=== PATIENT | female | born 1930 | race Caucasian/White ===

== ENCOUNTER 2020-01-31 15:18 | Emergency (ER) | payer MEDICARE, BC ==
--- OUTSIDE RECORDS SUMMARY | 2020-01-31 17:47 | XMS REPORT | Summary of Care ---
:1930 Author Organization [facility] Address [address] [place] [address] Care Team Providers Name Role Phone Sagar Mendieta MD Primary Care Provider Reason for Visit Reason Comments Memory Loss Encounter Details Date Type Department Care Team Description 12/22/2019 Office Visit [facility], Late onset Alzheimer's disease without behavioral disturbance (Primary Dx); Geriatricians at [address], PEDIATRICIAN/MEDICAL DOCTOR Frequent falls; [facility] [address] Right hip pain [address] [facility] [place] [address] [place] [address] [place], [place] [phone] Allergies Active Allergy Reactions Severity Noted Date Comments Morphine And Related Rash Low 02/24/2019 Adhesive Tape Itching 02/24/2019 "Paper tape" documented as of this encounter (statuses as of 12/24/2019) Medications Medication Sig Dispensed Refills Start End Date Status Date aspirin 81 MG EC Take 81 mg by 0 Active tablet mouth daily verapamil Take 120 mg by 0 Active (CALAN-SR) 120 MG mouth every CR tablet morning rosuvastatin Take 10 mg by 0 Active (CRESTOR) 10 MG mouth 3 (three) tablet times a week atenolol Take 50 mg by 0 Active (TENORMIN) 50 MG mouth daily tablet loperamide Take 2 mg by 0 Active (IMODIUM) 2 MG mouth as needed capsule for Diarrhea Amoxicillin 500 MG Take 500 mg by 0 Active Oral Capsule mouth as needed (AMOXIL) Prior to dental appointments Magnesium Oxide Take 400 mg by 0 Active 400 (241.3 Mg) MG mouth daily Oral Tablet (MAG-OX) Magnesium Take by mouth 0 Active Hydroxide 400 daily as needed MG/5ML Oral for Constipation Suspension (MILK OF MAGNESIA) Psyllium Take by mouth 0 Active (METAMUCIL FIBER PO) Bismuth Take 15 mLs by 0 Active Subsalicylate 262 mouth every 6 MG/15ML Oral (six) hours as Suspension needed for (BISMATROL) Indigestion guaiFENesin 100 Take 200 mg by 0 Active MG/5ML Oral Syrup mouth Three (ROBITUSSIN) times daily as needed for Cough Alum & Mag Take by mouth 0 Active Hydroxide-Simeth (ANTACID ADVANCED PO) Simethicone 80 MG Chew 80 mg by 0 Active Oral Tablet Mouth every 6 Chewable (MYLICON) (six) hours as needed for Flatulence Sertraline HCl 100 Take 1 tablet by 30 tablet 1 Active MG Oral Tablet mouth daily Take 0 (ZOLOFT) one tablet daily by mouth Acetaminophen ER Please 60 tablet 0 Active 650 MG Oral Tablet administer 0 Extended Release Tylenol 650 mg Q 12 hours x 14 days acetaminophen Take 650 mg by 0 12/22/19 Discontinued (ACETAMINOPHEN 8 mouth every 4 20 (Reorder) HOUR) 650 MG CR (four) hours as tablet needed for Pain Misc. Devices Use as directed. LFT's and serum valproic acid level during the week of Nov 23 2019. 1 each 0 12/22/19 Discontinued (No (DURABLE MEDICAL 9 20 longer needed) EQUIPMENT SEE SIG) Dx: Alzheimer's disease with agitation. XX MISC Sertraline HCl 100 Take 1 and 1/2 45 tablet 5 12/22/19 Discontinued MG Oral Tablet tabs 1 X a day 9 20 (Reorder) (ZOLOFT) QUEtiapine Take 0.5 tablets 15 tablet 1 12/24/19 Discontinued Fumarate 25 MG by mouth daily 0 20 Oral Tablet (SEROquel) Misc. Devices Use as directed. 1 each 0 12/22/19 Discontinued ( No (DURABLE MEDICAL Dose reduce 0 20 longer needed) EQUIPMENT SEE SIG) Depakote to 125 XX MISC mg BID x two weeks and then discontinue Divalproex Sodium take 1 tablet by 60 tablet 5 12/22/19 Discontinued (No 125 MG Oral Tablet mouth twice a 0 20 longer needed) Delayed Release day (DEPAKOTE) documented as of this encounter (statuses as of 12/24/2019) Active Problems Problem Noted Date Frequent falls 12/24/2019 Right hip pain 12/24/2019 Late onset Alzheimer's disease without behavioral disturbance 05/05/2019 Overview: 91/100; 17 March 2019 Last Assessment & Plan: Patient with agitation especially towards the evening directed at staff and other residents. We will start Depakote 125 mg bid and follow up with response from family regarding further titration. Patient remains appropriate for assisted living level of care and does not have residential needs at this time. Check LFTs and valproic acid level in about 6 weeks. Coronary artery disease involving [place] coronary artery of [place] heart 05/05 without angina pectoris Overview: With stents On daily aspirin Depression with anxiety 02/24/2019 Overview: 06/01 Geriatric Depression Scale February 2019 Last Assessment & Plan: Patient with ongoing anxiety despite sertraline 100 mg. Anxiety likely part of dementia syndrome. Decrease sertraline to 50 mg daily and next visit evaluate for further taper and d/c. Sensorineural hearing loss (SNHL) of both ears 02/24/2019 Overview: +hearing aides Essential hypertension 02/24/2019 Last Assessment & Plan: Stable on current therapy. Aortic valve disorder 02/24/2019 Pure hypercholesterolemia 02/24/2019 Polypharmacy 02/24/2019 Last Assessment & Plan: D/C Mg++, Ca++. Xanax and MVI. documented as of this encounter (statuses as of 12/24/2019) Resolved Problems Problem Noted Date Resolved Date Mild cognitive impairment with memory loss 02/24/2019 08/27/2019 Overview: 91/100; 17 March 2019 Last Assessment & Plan: Patient with clinical history and objective testing concerning for a mild dementia. However, depression and anxiety are very prominent and may have a negative impact on cognition. We will defer brain imaging for now. Check TFTs, B12 and folate along with CMP and CBC. There are no residential needs and her current level of care is appropriate. There are no behavior issues. Family is concerned and appropriate in supporting patient and are working hard to meet her needs. We suggest no driving at this time. documented as of this encounter (statuses as of 12/24/2019) Social History Tobacco Use Types Packs/Day Years Used Date Never Smoker Smokeless Tobacco: Never Used Alcohol Use Drinks/Week oz/Week Comments Never Alcohol Habits Answer Date Recorded How often do you have a drink containing alcohol? Never 02/24/2019 How many drinks containing alcohol do you have on a typical Not asked day when you are drinking? How often do you have six or more drinks on one occasion? Not asked Sex Assigned at Date Recorded Not on file Job Start Date Occupation Industry Not on file Not on file Not on file Travel History Travel Start Travel End No recent travel history available. documented as of this encounter Last Filed Vital Signs Vital Sign Reading Time Taken Comments Blood Pressure 94/60 12/22/2019 2:13 PM EST Pulse 80 12/22/2019 2:13 PM EST Temperature - - Respiratory Rate 16 12/22/2019 2:12 PM EST Oxygen Saturation - - Inhaled Oxygen Concentration - - Weight 69.9 kg (154 lb) 12/22/2019 2:12 PM EST Height - - Body Mass Index 27.29 05/05/2019 2:32 PM EDT documented in this encounter Patient Instructions Patient InstructionsRosa Barillas NP - 12/22/2019 2:00 PM ESTPlease call me in one month to let me know how she is doing one 100 mg of sertraline and we will dose reduce to 75 mg at that time I will call you once I hear from primary care office documented in this encounter Progress Notes Rosa Barillas NP - 12/22/2019 2:00 PM EST Nataliya Tavares is a/an 89 y.o. female who presents for ongoing geriatric medicine monitoring and management of their progressive cognitive impairment. Additional Providers: Sagar Mendieta MD (PCP) History of Present Illness: Patient presents for one month follow up to her office visit on 11/24/2019. This is my second encounter with patient. Interviews were conducted together. History primarily contributed by patient's daughter, [place]. Patient continues to reside in [facility]. She transitioned there in the fall from living with [place]. Patient was seen urgently in November due to patient developing inconsolable anxiety and behaviors secondary to her Alzheimer's disease. These behaviors increased shortly after patient transitioned to [facility]. She was at times confrontation and "aggressive" with staff and other residents. During the fall patient sertraline was increased and depakote was initiated, both of which had little effect of mood and behaviors. At patient's last visit, we dose reduced and discontinued her Depakote. Patient was started on quetiapine 12.5 mg daily which facility notes has improved patient's behaviors and mood. Daughter agrees with this report. Daughters would like to slowly discontinue sertraline as patient has been on it many years without good effect. Patient has had several falls since her last visit- three occurring last week. Daughter reports thatpatient was sent to the ED 2/3 times for evaluation. Patient has bruising and pain when sitting to her right hip/buttock. There is no changes in ambulation. Patient saw her PCP last week- had labs. Perdaughter, script for magnesium and levothyroxine called in. Called PCP to verify this. Patient's BP is soft in office today with orthostatic changes. Relevant Testing: MMSE/3MS/GDS 02/24/2019: 28/30, 91/100 and 06/01. I have reviewed and updated all applicable and available medical, surgical, family, social, and allergy history. Past Medical History: Diagnosis Date Aortic valve disorder 02/24/2019 Coronary artery disease involving [place] coronary artery of [place] heart without angina pectoris 05/05/2019 With stents On daily aspirin Depression with anxiety 02/24/201906/01 Geriatric Depression Scale February 2019 Essential hypertension 02/24/2019 Late onset Alzheimer's disease without behavioral disturbance 05/05/2019 Polypharmacy 02/24/2019 Pure hypercholesterolemia 02/24/2019 Sensorineural hearing loss (SNHL) of both ears 02/24/2019 +hearing aides Social History Socioeconomic History Marital status: Spouse name: Not on file Number of children: Not on file Years of education: Not on file Highest education level: Not on file Occupational History Not on file Social Needs Financial resource strain: Not on file Food insecurity: Worry: Not on file Inability: Not on file Transportation needs: Medical: Not on file Non-medical: Not on file Tobacco Use Smoking status: Never Smoker Smokeless tobacco: Never Used Substance and Sexual Activity Alcohol use: Never Frequency: Never Drug use: Not on file Sexual activity: Not on file Lifestyle Physical activity: Days per week: Not on file Minutes per session: Not on file Stress: Not on file Relationships Social connections: Talks on phone: Not on file Gets together: Not on file Attends samaritan service: Not on file Active member of club or organization: Not on file Attends meetings of clubs or organizations: Not on file Relationship status: Not on file Intimate partner violence: Fear of current or ex partner: Not on file Emotionally abused: Not on file Physically abused: Not on file Forced sexual activity: Not on file Other Topics Concern Not on file Social History Narrative Not on file Current Outpatient Medications Medication Sig Dispense Refill acetaminophen (ACETAMINOPHEN 8 HOUR) 650 MG CR tablet Take 650 mg by mouth every 4 (four) hours as needed for Pain Alum & Mag Hydroxide-Simeth (ANTACID ADVANCED PO) Take by mouth Amoxicillin 500 MG Oral Capsule (AMOXIL) Take 500 mg by mouth as needed Prior to dental appointments aspirin 81 MG EC tablet Take 81 mg by mouth daily atenolol (TENORMIN) 50 MG tablet Take 50 mg by mouth daily Bismuth Subsalicylate 262 MG/15ML Oral Suspension (BISMATROL) Take 15 mLs by mouth every 6 (six) hours as needed for Indigestion guaiFENesin 100 MG/5ML Oral Syrup (ROBITUSSIN) Take 200 mg by mouth Three times daily as needed for Cough loperamide (IMODIUM) 2 MG capsule Take 2 mg by mouth as needed for Diarrhea Magnesium Hydroxide 400 MG/5ML Oral Suspension (MILK OF MAGNESIA) Take by mouth daily as needed for Constipation Magnesium Oxide 400 (241.3 Mg) MG Oral Tablet (MAG-OX) Take 400 mg by mouth daily Psyllium (METAMUCIL FIBER PO) Take by mouth QUEtiapine Fumarate 25 MG Oral Tablet (SEROquel) Take 0.5 tablets by mouth daily 15 tablet 1 rosuvastatin (CRESTOR) 10 MG tablet Take 10 mg by mouth 3 (three) times a week Sertraline HCl 100 MG Oral Tablet (ZOLOFT) Take 1 and 1/2 tabs 1 X a day 45 tablet 5 Simethicone 80 MG Oral Tablet Chewable (MYLICON) Chew 80 mg by Mouth every 6 (six) hours as needed for Flatulence verapamil (CALAN-SR) 120 MG CR tablet Take 120 mg by mouth every morning No current facility-administered medications for this visit. Allergies Allergen Reactions Tape [Adhesive Tape] Itching "Paper tape" Morphine And Related Rash Review of Systems Unable to perform ROS: Dementia Refer to HPI for portions of ROS contributed by daughters. Vitals: 12/22/19 1412 12/22/19 1413 BP: 110/64 94/60 BP Location: Left arm Left arm Patient Position: Sitting Sitting Cuff size: Regular Regular Pulse: 76 80 Resp: 16 Weight: 69.9 kg (154 lb) Physical Exam: VS reviewed Constitutional: She appears well-developed and well-nourished. No distress. Alert, pleasant, hard of hearing HENT: Head: Normocephalic and atraumatic. Mouth/Throat: Oropharynx is clear and moist. Cardiovascular: Normal rate and regular rhythm. + murmur Pulmonary/Chest: Effort normal and breath sounds normal. She has no wheezes. She has no rales. Abdominal: Soft. Musculoskeletal: Normal range of motion. She exhibits no edema or deformity. Neurological: She is alert. Motor strength 5/5 and equal bilat No tremor or cogwheeling Gait and balance are fair Abnormal remote memory Skin: Skin is warm and dry. Bruising to right hip, posterior thigh and buttock. No results found for any visits on 12/22/19. Assessment and Plan: 1) Late Onest Alzheimer's disease with behavioral disturbance -Patient with progressive cognitive decline and behaviors secondary to the disease process. Consistently agitated with behaviors directed and staff and other residents. Daughters want to maintain patient in current environment and optimize quality of life. -Continue quetiapine 12.5 mg daily for behavioral disturbance -Dose reduce sertraline to 100 mg x one month. DaughterFrance to call at that time to discuss how patient is tolerating. May further dose reduce at that time -At appropriate level of care at [facility] 2) Frequent falls -Call to PCP during office visit to recommending dose reduction of antihypertensives due to orthostasis to minimize risk for falls 3) Right hip pain -No changes in ROM or gait -Tylenol 650 mg BID x 14 days -Ice to area nightly and PRN Follow up in eight weeks Rosa Barillas, TORSTEN documented in this encounter Plan of Treatment Date Type Specialty Care Team Description 02/16/2020 Office Visit Geriatric Medicine Rosa Barillas NP [address] [facility] [place] [address] Health Maintenance Due Date Last Done Comments MMR Vaccines (1 of 1 - Standard 02/04/1931 series) Varicella Vaccines (1 of 2 - 02/04/1931 2-dose childhood series) DTaP,Tdap,and Td Vaccines (1 - 02/04/1939 Tdap) Zoster Vaccines (1 of 2) 02/04/1982 Osteoporosis Screening 2 yr 02/04/1997 Pneumococcal Vaccine: 65+ Years (1 02/04/1997 of 2 - PCV13) Influenza Vaccine 08/18/2019 HIB Vaccines Aged Out No longer eligible based on patient's age to complete this topic Hepatitis A Vaccines Aged Out No longer eligible based on patient's age to complete this topic Hepatitis B Vaccines Aged Out No longer eligible based on patient's age to complete this topic IPV Vaccines Aged Out No longer eligible based on patient's age to complete this topic Pneumococcal Vaccine: Pediatrics Aged Out No longer eligible based on (0 to 5 Years) and At-Risk patient's age to complete this Patients (6 to 64 Years) topic documented as of this encounter Results Not on filedocumented in this encounter Visit Diagnoses Diagnosis Late onset Alzheimer's disease without behavioral disturbance - Primary Frequent falls Personal history of fall Right hip pain Pain in joint, pelvic region and thigh documented in this encounter
--- OUTSIDE RECORDS SUMMARY | 2020-01-31 17:47 | XMS REPORT | Continuity of Care Document ---
:1930 External Reference #:[id number] Author Name Janeth Richards Care Team Providers Name Role Phone Omar ENT - Otolaryngology Care Team Information Associate Director Finance [phone] Errol Alfred MD - Gastroenterology Care Team Information Associate Director Finance [phone] Harpreet Bowman MD - Plastic and Care Team Information Associate Director Finance [phone] Reconstructive Surgery Maria De Jesus Naranjo MD - Cardiovascular Care Team Information Associate Director Finance Disease Renny Pineda MD - Physical Care Team Information Associate Director Finance Medicine & Rehabilitation Problems Active Problems Provider Date Benign essential hypertension Socrates Wolf M.D. Onset: 08/10/2003 Pure hypercholesterolemia Socrates Wolf M.D. Onset: 08/10/2003 Aortic valve disorder Onset: 08/10/2003 Rheumatic disease of tricuspid valve Socrates Wolf M.D. Onset: 2002 Anxiety state Socrates Wolf M.D. Onset: 08/10/2003 Conductive hearing loss Onset: 08/10/2003 Disorder of cardiovascular system Socrates Wolf M.D. Onset: 03/21/2004 Cardiac pacemaker in situ Socrates Wolf M.D. Onset: 03/21/2004 Abdominal pain Socrates Wolf M.D. Onset: 06/07/2004 Dysthymia Socrates Wolf M.D. Onset: 06/22/2004 Chronic rhinitis Socrates Wolf M.D. Onset: 09/04/2004 Osteochondropathy Socrates Wolf M.D. Onset: 08/24/2008 Essential hypertension Socrates Wolf M.D. Onset: 03/22/2016 Hypothyroidism Cuca Fam PA Onset: 07/22/2019 Alzheimer's disease Cuca Fam PA Onset: 07/22/2019 Social History Type Date Description Comments Sex Unknown Tobacco Use Start: Unknown Never Smoked Cigarettes ETOH Use Denies alcohol use Tobacco Use Start: Unknown Patient has never smoked Recreational Drug Use Denies Drug Use Smoking Status Reviewed: 07/27/19 Patient has never smoked Exercise Type/Frequency Exercises rarely Sun Exposure Does not use sunscreen not regularly Seat Belt/Car Seat Seat Belt Use - Yes Smoke Alarms Yes smoke alarm Allergies, Adverse Reactions, Alerts Active Allergies Reaction Severity Comments Date Bactrim rash urticarial 09/12/2013 Tape And Adhesives Rash and itching 04/02/2014 Sulfa rash and nausea 04/02/2014 Morphine 09/19/2018 Inactive Allergies NKDA 07/11/2012 Medications Active Medications SIG Qnty Indications Ordering Date Provider Magox 400 2 tablets every 180tabs Poli Moreno, 12/17/2019 400(241.3mg) mg night at bedtime D.O. Tablets Levothyroxine Sodium 1 by mouth every 30tabs Poli Moreno, 12/17/2019 day D.O. 25mcg Tablets Aspirin Ec Low Dose 1 by mouth every Unknown 12/15/[address] Sertraline HCL 1 1/2 tablets by F41.1 Unknown 12/10/2019 100mg mouth every day Tablets F34.1 Quetiapine Fumarate 1/2 tablet daily Unknown 11/24/2019 25mg Tablets Metamucil 1 tbsp/day as needed Sagar Mendieta, 08/20/2019 30.9% Powder for constipation M.D. Immodium as needed Unknown 07/21/2019 Rosuvastatin Calcium takes on Mon, Wed, Fri E78.00 Unknown 03/29/2019 10mg Tablets Verapamil HCL ER take 1 tablet by mouth 90tabs I10 Sagar Mendieta, 2017 120mg every morning for high M.D. Tablets ER blood pressure Atenolol take 1 tablet by mouth 90tabs I10 Sagar Mendieta, 09/10/2018 50mg Tablets every morning for high M.D. blood pressure Amoxicillin take 4, one hour 28caps 424.1 Sagar Mendieta, 06/11/2014 500mg before dental work M.DMorro Capsules 397.0 Acetaminophen 1-2 q4h prn pain otc Unknown 04/01/2014 325mg Tablets don't exceed 8 / day Simethicone 1 po 4x/day as 120units 564.1 Socrates Ellison 05/26/2010 80mg Chewtabs needed before meals Yumiko Wolf and before bed, for abdominal gas 271.3 History Medications Sertraline HCL take 1 tablet daily F41.1 Unknown 08/27/2019 - 12/16/2019 50mg Tablets for mood F34.1 Medications Administered in Office Medication SIG Qnty Indications Ordering Provider Date injection, kenalog, 10 mg Socrates Wolf M.D. 06/21/2014 Injection Immunizations CPT Code Status Date Vaccine Lot # [id number] Given 07/22/2019 Influenza Vaccine, Inactivated, Subunit, [id number] Adjuvanted, For Intrmusc 80707 Given 07/29/2018 Influenza Vaccine Split Virus Preservative Free Im [id number] Use (hi-dose) 98393 Given 06/04/2018 Shingrix Zoster (Shingles) Vaccine (HZV) Recomb,Subnit,Adjuvanted 59741 Given 03/11/2018 Shingrix Zoster (Shingles) Vaccine (HZV) Recomb,Subnit,Adjuvanted 66885 Given 08/22/2017 Influenza Vaccine Split Virus Preservative Free Im Use (hi-dose) 13181 Given 07/21/2016 Influenza Vaccine Split Virus Preservative Free Im [id number] Use (hi-dose) 46109 Given 10/07/2015 Prevnar 13 [id number] 80981 Given 08/23/2015 Influenza Virus Vaccine, Quadrivalent, Split, [id number] Preservative Free 70022 Given 10/29/2014 Adacel or Boostrix, TDaP [id number] 89118 Given 08/06/2014 Pneumococcal Immunization [id number] 29453 Given 07/16/2014 Influenza Virus Vaccine, Quadrivalent, Split, [id number] Preservative Free 57557 Given 08/03/2013 Flu, Split Virus 3Yrs [id number] 21901 Given 07/11/2012 Flu, Split Virus 3Yrs [id number] 51023 Given 08/07/2011 Zostavax [id number] 47936 Given 08/02/2011 Flu, Split Virus 3Yrs [id number] 57066 Given 08/18/2010 Flu, Split Virus 3Yrs 37231 Given 08/24/2008 Flu, Split Virus 3Yrs 07265 Given 08/20/2007 Flu, Split Virus 3Yrs [id number] 46291 Given 09/10/2006 Flu, Split Virus 3Yrs 08217 Given 08/13/2005 Td Immunization 61933 Given 08/13/2005 Flu, Split Virus 3Yrs 34688 Given 08/23/2004 Flu, Split Virus 3Yrs 47869 Given 08/28/2003 Flu, Split Virus 3Yrs 00189 Given 08/10/2003 Pneumococcal Immunization Vital Signs Date Vital Result Comment 12/16/2019 2:44pm BP Systolic 120 mmHg BP Diastolic 80 mmHg Height 63.5 inches 5'3.50" Weight 144.00 lb BMI (Body Mass Index) 25.1 kg/m2 07/22/2019 9:52am BP Systolic 112 mmHg BP Diastolic 80 mmHg Heart Rate 80 /min Respiratory Rate 12 /min Height 63.5 inches 5'3.50" Weight 162.00 lb BMI (Body Mass Index) 28.2 kg/m2 Results Test Acquired Date Facility Test Result H/L Range Note Laboratory test 12/16/2019 [facility] Vitamin B12 284 pg/mL Normal 180-914 1 finding [phone] CBC Auto Diff 12/16/2019 [facility] White Blood 6.2 10^3/uL Normal 3.5-10.8 [phone] Count Red Blood Count 5.28 10^6/uL High 3.70-4.87 Hemoglobin 15.7 g/dL Normal 12.0-16.0 Hematocrit 47 % Normal 35-47 Mean Corpuscular Volume 89 fL Normal 80-97 Mean Corpuscular Hemoglobin 30 pg Normal 27-31 Mean Corpuscular HGB Conc 33 g/dL Normal 31-36 Red Cell Distribution Width 16 % High 10-15 Platelet Count 186 10^3/uL Normal 150-450 Mean Platelet Volume 8.8 fL Normal 7.4-10.4 Abs Neutrophils 3.9 10^3/uL Normal 1.5-7.7 Abs Lymphocytes 1.5 10^3/uL Normal 1.0-4.8 Abs Monocytes 0.6 10^3/uL Normal 0-0.8 Abs Eosinophils 0.1 10^3/uL Normal 0-0.6 Abs Basophils 0.0 10^3/uL Normal 0-0.2 Abs Nucleated RBC 0.0 10^3/uL Granulocyte % 63.7 % Lymphocyte % 23.5 % Monocyte % 10.4 % Eosinophil % 2.0 % Basophil % 0.4 % Nucleated Red Blood Cells % 0.0 TSH+Free T4 12/16/2019 [facility] TSH (Thyroid 10.91 mcIU/mL High 0.34-5.60 [phone] Stim Horm) Free T4 (Free Thyroxine) 0.94 ng/dL Normal 0.61-1.12 Comp Metabolic Panel 12/16/2019 [facility] Sodium 137 mmol/L Normal 135-145 [phone] Potassium 4.1 mmol/L Normal 3.5-5.0 Chloride 100 mmol/L Low 101-111 Co2 Carbon Dioxide 29 mmol/L Normal 22-32 Anion Gap 8 mmol/L Normal 2-11 Glucose 113 mg/dL High 70-100 Blood Urea Nitrogen 20 mg/dL Normal 6-24 Creatinine 0.83 mg/dL Normal 0.51-0.95 BUN/Creatinine Ratio 24.1 High 8-20 Calcium 9.1 mg/dL Normal 8.6-10.3 Total Protein 6.1 g/dL Low 6.4-8.9 Albumin 4.0 g/dL Normal 3.2-5.2 Globulin 2.1 g/dL Normal 2-4 Albumin/Globulin Ratio 1.9 Normal 1-3 Total Bilirubin 1.00 mg/dL Normal 0.2-1.0 Alkaline Phosphatase 90 U/L Normal 34-104 Alt 9 U/L Normal 7-52 Ast 14 U/L Normal 13-39 Egfr Non- 65.0 >60 Egfr 78.7 >60 2 Laboratory test 12/16/2019 [facility] Magnesium 1.8 mg/dL Low 1.9- 2.7 finding [phone] Lipid Profile 07/21/2019 [facility] Triglycerides 159 mg/dL 3 (Trig/Chol/HDL) [phone] Cholesterol 243 mg/dL 4 HDL Cholesterol 46.5 mg/dL 5 LDL Cholesterol 165 mg/dL 6 Laboratory test 07/21/2019 [facility] Alt (SGPT) 9 U/L Normal 7-52 7 finding [phone] Basic Metabolic 07/21/2019 [facility] Sodium 136 mmol/L Normal 135- 145 Panel [phone] Potassium 4.1 mmol/L Normal 3.5-5.0 Chloride 100 mmol/L Low 101-111 Co2 Carbon Dioxide 28 mmol/L Normal 22-32 Anion Gap 8 mmol/L Normal 2-11 Glucose 136 mg/dL High 70-100 Blood Urea Nitrogen 16 mg/dL Normal 6-24 Creatinine 0.84 mg/dL Normal 0.51-0.95 BUN/Creatinine Ratio 19.0 Normal 8-20 Calcium 9.7 mg/dL Normal 8.6-10.3 Egfr Non- 64.1 >60 Egfr 77.6 >60 8 Quantiferon-TB Gold 07/21/2019 [facility] QuantiferonTb Negative Negative 9 Plus [phone] Gold Plus Result TB1 Ag minus Nil Result -0.01 IU/mL TB2 Ag minus Nil Result -0.01 IU/mL Mitogen minus Nil Result 0.71 IU/mL Nil Result 0.03 IU/mL Laboratory test 07/21/2019 [facility] TSH (Thyroid 8.92 High 0.34- 5.60 10 finding [phone] Stim Horm) mcIU/mL CBC Auto Diff 07/21/2019 [facility] White Blood 6.4 10^3/uL Normal 3.5-10.8 [phone] Count Red Blood Count 5.50 10^6/uL High 3.70-4.87 Hemoglobin 16.6 g/dL High 12.0-16.0 Hematocrit 49 % High 35-47 Mean Corpuscular Volume 90 fL Normal 80-97 Mean Corpuscular Hemoglobin 30 pg Normal 27-31 Mean Corpuscular HGB Conc 34 g/dL Normal 31-36 Red Cell Distribution Width 14 % Normal 10-15 Platelet Count 228 10^3/uL Normal 150-450 Mean Platelet Volume 8.7 fL Normal 7.4-10.4 Abs Neutrophils 3.8 10^3/uL Normal 1.5-7.7 Abs Lymphocytes 1.7 10^3/uL Normal 1.0-4.8 Abs Monocytes 0.7 10^3/uL Normal 0-0.8 Abs Eosinophils 0.1 10^3/uL Normal 0-0.6 Abs Basophils 0.0 10^3/uL Normal 0-0.2 Abs Nucleated RBC 0.0 10^3/uL Granulocyte % 60.1 % Lymphocyte % 26.9 % Monocyte % 11.7 % Eosinophil % 0.9 % Basophil % 0.4 % Nucleated Red Blood Cells % 0.0 1 Normal Range 180 to 914 Indeterminate Range 145 to 180 Deficient Range <145 2 Because ethnic data is not always readily available, this report includes an eGFR for both -Americans and non- Americans. The National Kidney Disease Education Program (NKDEP) does not endorse the use of the MDRD equation for patients that are not between the ages of 18 and 70, are , have extremes of body size, muscle mass, or nutritional status, or are non- or non-. According to the National Kidney Foundation, irrespective of diagnosis, the stage of the disease is based on the level of kidney function: Stage Description GFR(mL/min/1.73 m(2)) 1 Kidney damage with normal or decreased GFR 90 2 Kidney damage with mild decrease in GFR 60-89 3 Moderate decrease in GFR 30-59 4 Severe decrease in GFR 15-29 5 Kidney failure <15 (or dialysis) 3 Desirable: <150 Borderline High: 150-199 High: 200-499 Very High: >500 4 Desirable: <200 Borderline High: 200-239 High: >239 5 Low: <40 Desirable: 40-60 High: >60 6 Desirable: <100 Near Optimal: 100-129 Borderline High: 130-159 High: 160-189 Very High: >189 7 FASTING 12 HOUR Copy Result to: MARIA DE JESUS NARANJO ([id number]) [id number] Because ethnic data is not always readily available, this report includes an eGFR for both -Americans and non- Americans. The National Kidney Disease Education Program (NKDEP) does not endorse the use of the MDRD equation for patients that are not between the ages of 18 and 70, are , have extremes of body size, muscle mass, or nutritional status, or are non- or non-. According to the National Kidney Foundation, irrespective of diagnosis, the stage of the disease is based on the level of kidney function: Stage Description GFR(mL/min/1.73 m(2)) 1 Kidney damage with normal or decreased GFR 90 2 Kidney damage with mild decrease in GFR 60-89 3 Moderate decrease in GFR 30-59 4 Severe decrease in GFR 15-29 5 Kidney failure <15 (or dialysis) 9 M. tuberculosis infection NOT likely 10 FASTING 12 HOUR Copy Result to: MARIA DE JESUS NARANJO ([id number]) [id number] Procedures Date Code Description Status 12/16/2019 40472 Electrocardiogram Complete Completed 07/10/2018 14894006 Mammogram Completed 07/09/2014 [id number] Colonoscopy Completed Medical Devices Description No Information Available Encounters Type Date Location Provider Dx Diagnosis Office Visit 12/16/2019 Main Office Poli Moreno, G30.9 Alzheimer's disease, 2:30p D.O. unspecified I10 Essential (primary) hypertension E03.9 Hypothyroidism, unspecified F34.1 Dysthymic disorder E78.00 Pure hypercholesterolemia, unspecified F41.1 Generalized anxiety disorder Z68.25 Body mass index (BMI) 25.0-25.9, adult I35.0 Nonrheumatic aortic (valve) stenosis Assessments Date Code Description Provider 12/16/2019 G30.9 Alzheimer's disease, unspecified Poli Moreno D.O. 12/16/2019 I10 Essential (primary) hypertension Poli Moreno D.O. 12/16/2019 E03.9 Hypothyroidism, unspecified Poli Moreno D.O. 12/16/2019 F34.1 Dysthymic disorder Poli Moreno D.O. 12/16/2019 E78.00 Pure hypercholesterolemia, unspecified Poli Moreno D.O. 12/16/2019 F41.1 Generalized anxiety disorder Poli Moreno D.O. 12/16/2019 Z68.25 Body mass index (BMI) 25.0-25.9, adult Poli Moreno D.O. 12/16/2019 I35.0 Nonrheumatic aortic (valve) stenosis Poli Moreno D.O. 07/22/2019 Z00.00 Encounter for general adult medical Cuca Fam PA examination without abnormal findings 07/22/2019 G30.9 Alzheimer's disease, unspecified Cuca Fam PA 07/22/2019 I10 Essential (primary) hypertension Cuca Fam PA 07/22/2019 E03.9 Hypothyroidism, unspecified Cuca Fam PA 07/22/2019 F34.1 Dysthymic disorder Cuca Fam PA 07/22/2019 E78.00 Pure hypercholesterolemia, unspecified Cuca Fam PA 07/22/2019 Z23 Encounter for immunization Cuca Fam PA 07/22/2019 Z68.28 Body mass index (BMI) 28.0-28.9, adult Cuca Fam PA Plan of Treatment No Information Available Functional Status Description No Information Available Mental Status Description No Information Available Referrals Description No Information Available
--- OUTSIDE RECORDS SUMMARY | 2020-01-31 17:47 | XMS REPORT | Continuity of Care Document ---
:1930 External Reference #:[id number] Author Name Poli Moreno D.O. (transmitted by agent of provider Linette Davidson) Address [address] [place] [address] Care Team Providers Name Role Phone Omar ENT - Otolaryngology Care Team Information Flavorer [phone] Errol Alfred MD - Gastroenterology Care Team Information Flavorer [phone] Harpreet Bowman MD - Plastic and Care Team Information Flavorer Reconstructive Surgery Alphonso Naranjo MD - Cardiovascular Care Team Information Flavorer [phone] Disease Renny Pineda MD - Physical Care Team Information Flavorer Medicine & Rehabilitation Problems Active Problems Provider [...] Medications SIG Qnty Indications Ordering Date Provider Atenolol 1 by mouth every 90tabs I10 Poli Moreno, 12/23/2019 25mg Tablets day D.O. Magox 400 2 tablets every 180tabs Poli [...] Tablets F34.1 Quetiapine Fumarate 1/2 tablet daily at 7 Unknown 11/24/2019 25mg a.m. the full tab at Tablets 3 p.m. Metamucil 1 tbsp/day as needed Silcoff, 08/20/2019 30.9% Powder for constipation Yumiko Keith Immodium as needed Unknown 07/21/2019 Rosuvastatin Calcium takes on mon, wed, 45tabs E78.00 Poli Moreno, 10/2019 10mg fri D.O. Tablets Verapamil HCL ER take 1 tablet by 90tabs I10 Samanthacoblaine, 09/18/2018 120mg mouth every morning Yumiko Keith Tablets ER for high blood pressure Amoxicillin take 4, one hour 28caps I35.0 Silcoblaine, 06/11/2014 500mg before dental work Yumiko Keith Capsules Acetaminophen 1-2 q4h prn pain otc Unknown 04/01/2014 325mg don't exceed 8 / day Tablets Simethicone 1 po 4x/day as needed 120units 564.1 Socrates Ellison 05/26/2010 80mg Chewtabs before meals and Yumkio Wolf before bed, for abdominal gas 271.3 History Medications Sertraline HCL take 1 tablet daily F41.1 Unknown 08/27/2019 - 12/16/2019 50mg Tablets for mood F34.1 Medications Administered in Office Medication SIG Qnty Indications Ordering Provider Date injection, kenalog, 10 mg Socrates Wolf M.D. 06/21/2014 Injection Immunizations CPT Code Status Date Vaccine Lot # [id number] Given 07/22/2019 Influenza Vaccine, Inactivated, Subunit, [id number] Adjuvanted, For Intrmusc 65373 Given 07/29/2018 Influenza Vaccine Split Virus Preservative Free Im [id number] Use (hi-dose) 73687 Given 06/04/2018 Shingrix Zoster (Shingles) Vaccine (HZV) Recomb,Subnit,Adjuvanted 67105 Given 03/11/2018 Shingrix Zoster (Shingles) Vaccine (HZV) Recomb,Subnit,Adjuvanted 24151 Given 08/22/2017 Influenza Vaccine Split Virus Preservative Free Im Use (hi-dose) 57455 Given 07/21/2016 Influenza Vaccine Split Virus Preservative Free Im [id number] Use (hi-dose) 29736 Given 10/07/2015 Prevnar 13 [id number] 81779 Given 08/23/2015 Influenza Virus Vaccine, Quadrivalent, Split, [id number] Preservative Free 16626 Given 10/29/2014 Adacel or Boostrix, TDaP [id number] 76807 Given 08/06/2014 Pneumococcal Immunization [id number] 22295 Given 07/16/2014 Influenza Virus Vaccine, Quadrivalent, Split, [id number] Preservative Free 82757 Given 08/03/2013 Flu, Split Virus 3Yrs [id number] 32533 Given 07/11/2012 Flu, Split Virus 3Yrs [id number] 90479 Given 08/07/2011 Zostavax [id number] 71737 Given 08/02/2011 Flu, Split Virus 3Yrs [id number] 16262 Given 08/18/2010 Flu, Split Virus 3Yrs 44794 Given 08/24/2008 Flu, Split Virus 3Yrs 44468 Given 08/20/2007 Flu, Split Virus 3Yrs [id number] 17127 Given 09/10/2006 Flu, Split Virus 3Yrs 76901 Given 08/13/2005 Td Immunization 49371 Given 08/13/2005 Flu, Split Virus 3Yrs 20420 Given 08/23/2004 Flu, Split Virus 3Yrs 41911 Given 08/28/2003 Flu, Split Virus 3Yrs 24247 Given 08/10/2003 Pneumococcal Immunization Vital Signs Date Vital Result Comment 01/20/2020 2:44pm BP Systolic 122 mmHg BP Diastolic 84 mmHg Weight 146.00 lb 12/16/2019 2:44pm BP Systolic 120 mmHg BP Diastolic 80 mmHg Height 63.5 inches 5'3.50" Weight 144.00 lb BMI (Body Mass Index) 25.1 kg/m2 Results Test Acquired Date Facility Test Result H/L Range Note Laboratory test 12/16/2019 [facility] Vitamin B12 284 pg/mL Normal 180-914 1 finding [phone] CBC Auto Diff 12/16/2019 [facility] White Blood 6.2 10^3/uL Normal 3.5-10.8 [phone] Count Red Blood Count 5.28 10^6/uL High [...] Blood Cells % 0.0 TSH+Free T4 12/16/2019 [facility] TSH (Thyroid 10.91 mcIU/mL High 0.34-5.60 [phone] Stim Horm) Free T4 (Free Thyroxine) 0.94 ng/dL Normal 0.61-1.12 Comp Metabolic Panel 12/16/2019 [facility] Sodium 137 mmol/L Normal 135-145 [phone] Potassium 4.1 mmol/L Normal 3.5-5.0 Chloride 100 [...] >60 Egfr 78.7 >60 2 Laboratory test finding 12/16/2019 [facility] Magnesium 1.8 mg/dL Low 1.9-2.7 [phone] 1 Normal Range 180 to 914 Indeterminate [...] 15-29 5 Kidney failure <15 (or dialysis) Procedures Date Code Description Status 12/16/2019 66271 Electrocardiogram Complete Completed 07/10/2018 [id number] Mammogram Completed 07/09/2014 [id number] Colonoscopy Completed Medical Devices Description No Information Available Encounters Type Date Location Provider Dx Diagnosis Office Visit 01/20/2020 Main Office Poli Moreno, G30.9 Alzheimer's disease, 2:30p D.O. unspecified I10 Essential (primary) hypertension E03.9 Hypothyroidism, unspecified F34.1 Dysthymic disorder E78.00 Pure hypercholesterolemia, unspecified F41.1 Generalized anxiety disorder I35.0 Nonrheumatic aortic (valve) stenosis Office Visit 12/16/2019 2:30p Main Office Poli Moreno, G30.9 Alzheimer 's D.O. disease, unspecified I10 Essential (primary) hypertension E03.9 Hypothyroidism, unspecified F34.1 Dysthymic disorder E78.00 Pure hypercholesterolemia, unspecified F41.1 Generalized anxiety disorder Z68.25 Body mass index (BMI) 25.0-25.9, adult I35.0 Nonrheumatic aortic (valve) stenosis Assessments Date Code Description Provider 01/20/2020 G30.9 Alzheimer's disease, unspecified Poli Moreno D.O. 01/20/2020 I10 Essential (primary) hypertension Poli Moreno D.OMorro 01/20/2020 E03.9 Hypothyroidism, unspecified Poli Moreno D.O. 01/20/2020 F34.1 Dysthymic disorder Poli Moreno D.O. 01/20/2020 E78.00 Pure hypercholesterolemia, unspecified Poli Moreno D.O. 01/20/2020 F41.1 Generalized anxiety disorder Poli Moreno D.O. 01/20/2020 I35.0 Nonrheumatic aortic (valve) stenosis Poli Moreno D.O. 12/16/2019 G30.9 Alzheimer's disease, unspecified Poli Moreno [...] Nonrheumatic aortic (valve) stenosis Poli Moreno D.O. Plan of Treatment Future Appointment(s):07/22/2020 10:00 am - Poli Moreno D.O. at [facility]/20/2020 - Poli Moreno D.O.G30.9 Alzheimer's disease, unspecifiedFollow up:6 months recheck hypothyroid/HTN/prwwdnzcqdpmlfQ29 Essential (primary) vmzovivogzlzS53.9 Hypothyroidism, yxjpjnnkwbiK84.1 Dysthymic cysdntvaJ24.00 Pure hypercholesterolemia, ejiygatqqgsW68.1 Generalized anxiety jytngteoT50.0 Nonrheumatic aortic (valve) stenosis Functional Status Description No Information Available Mental Status Description No Information Available Referrals Description No Information Available
--- OUTSIDE RECORDS SUMMARY | 2020-01-31 17:47 | XMS REPORT | Continuity of Care Document ---
:1930 External Reference #:[id number] Author Name Poli Moreno D.O. Address [address] [place] [address] Care Team Providers Name Role Phone Omar ENT - Otolaryngology Care Team Information Electrical Mechanic [phone] Errol Alfred MD - Gastroenterology Care Team Information Electrical Mechanic Harpreet Bowman MD - Plastic and Care Team Information Electrical Mechanic Reconstructive Surgery Maria De Jesus Naranjo MD - Cardiovascular Care Team Information Electrical Mechanic Disease Renny Pineda MD - Physical Care Team Information Electrical Mechanic Medicine & Rehabilitation Problems Active Problems Provider [...] Medications Active Medications SIG Qnty Indications Ordering Provider Date Aspirin Ec Low Dose 1 by mouth [...] Sagar Mendieta, 06/11/2014 500mg before dental work M.D. Capsules 397.0 Acetaminophen 1-2 q4h prn pain [...] CPT Code Status Date Vaccine Lot # [id number] Given 07/22/2019 Influenza Vaccine, Inactivated, Subunit, [id number] Adjuvanted, For Intrmusc 26582 Given 07/29/2018 Influenza Vaccine Split Virus Preservative Free Im [id number] Use (hi-dose) 91020 Given 06/04/2018 Shingrix Zoster (Shingles) Vaccine (HZV) Recomb,Subnit,Adjuvanted 39187 Given 03/11/2018 Shingrix Zoster (Shingles) Vaccine (HZV) Recomb,Subnit,Adjuvanted 05518 Given 08/22/2017 Influenza Vaccine Split Virus Preservative Free Im Use (hi-dose) 71195 Given 07/21/2016 Influenza Vaccine Split Virus Preservative Free Im [id number] Use (hi-dose) 62530 Given 10/07/2015 Prevnar 13 [id number] 12978 Given 08/23/2015 Influenza Virus Vaccine, Quadrivalent, Split, [id number] Preservative Free 97206 Given 10/29/2014 Adacel or Boostrix, TDaP [id number] 92392 Given 08/06/2014 Pneumococcal Immunization [id number] 10265 Given 07/16/2014 Influenza Virus Vaccine, Quadrivalent, Split, [id number] Preservative Free 76880 Given 08/03/2013 Flu, Split Virus 3Yrs [id number] 92221 Given 07/11/2012 Flu, Split Virus 3Yrs [id number] 12605 Given 08/07/2011 Zostavax [id number] 17897 Given 08/02/2011 Flu, Split Virus 3Yrs [id number] 02404 Given 08/18/2010 Flu, Split Virus 3Yrs 43616 Given 08/24/2008 Flu, Split Virus 3Yrs 89259 Given 08/20/2007 Flu, Split Virus 3Yrs [id number] 33983 Given 09/10/2006 Flu, Split Virus 3Yrs 47774 Given 08/13/2005 Td Immunization 69615 Given 08/13/2005 Flu, Split Virus 3Yrs 05542 Given 08/23/2004 Flu, Split Virus 3Yrs 92882 Given 08/28/2003 Flu, Split Virus 3Yrs 56745 Given 08/10/2003 Pneumococcal Immunization Vital Signs Date [...] Date Facility Test Result H/L Range Note Lipid Profile 07/21/2019 [facility] Triglycerides 159 mg/dL 1 (Trig/Chol/HDL) [phone] Cholesterol 243 mg/dL 2 HDL Cholesterol 46.5 mg/dL 3 LDL Cholesterol 165 mg/dL 4 Laboratory test 07/21/2019 [facility] Alt (SGPT) 9 U/L Normal 7-52 5 finding [phone] Basic Metabolic 07/21/2019 [facility] Sodium 136 mmol/L Normal 135- 145 Panel [phone] Potassium 4.1 mmol/L Normal 3.5-5.0 Chloride 100 mmol/L Low 101-111 Co2 Carbon Dioxide 28 mmol/L Normal 22-32 Anion Gap 8 mmol/L Normal 2-11 Glucose 136 mg/dL High 70-100 Blood Urea Nitrogen 16 mg/dL Normal 6-24 Creatinine 0.84 mg/dL Normal 0.51-0.95 BUN/Creatinine Ratio 19.0 Normal 8-20 Calcium 9.7 mg/dL Normal 8.6-10.3 Egfr Non- 64.1 >60 Egfr 77.6 >60 6 Quantiferon-TB Gold 07/21/2019 [facility] QuantiferonTb Negative Negative 7 Plus [phone] Gold Plus Result TB1 Ag minus Nil Result -0.01 IU/mL TB2 Ag minus Nil Result -0.01 IU/mL Mitogen minus Nil Result 0.71 IU/mL Nil Result 0.03 IU/mL Laboratory test 07/21/2019 [facility] TSH (Thyroid 8.92 mcIU/mL High 0.34-5.60 8 finding [phone] Stim Horm) CBC Auto Diff 07/21/2019 [facility] White Blood 6.4 10^3/uL Normal 3.5-10.8 [phone] Count Red Blood Count 5.50 10^6/uL High [...] Nucleated Red Blood Cells % 0.0 1 Desirable: <150 Borderline High: 150-199 High: 200-499 Very High: >500 2 Desirable: <200 Borderline High: 200-239 High: >239 3 Low: <40 Desirable: 40-60 High: >60 4 Desirable: <100 Near Optimal: 100-129 Borderline High: 130-159 High: 160-189 Very High: >189 5 FASTING 12 HOUR Copy Result to: MARIA DE JESUS NARANJO ([id number]) [id number] Because ethnic data is not always readily [...] 15-29 5 Kidney failure <15 (or dialysis) 7 M. tuberculosis infection NOT likely 8 FASTING 12 HOUR Copy Result to: MARIA DE JESUS NARANJO ([id number]) [id number] Procedures Date Code Description Status 12/16/2019 85951 Electrocardiogram Complete Completed 07/10/2018 62235189 Mammogram Completed 07/09/2014 72160036 Colonoscopy Completed Medical Devices Description No Information [...] Moreno D.O. 12/16/2019 E78.00 Pure hypercholesterolemia, unspecified SopPoli larios, D.O. 12/16/2019 F41.1 Generalized anxiety disorder Poli [...]
[2020-01-31 18:20] VITALS: BP 111/54
--- NOTE | 2020-01-31 18:42 | UC ---
Minor Trauma HPI - HPI Summary HPI Summary: C/O left knee abrasion after fall this afternoon. No LOC. Able to ambulate. - History of Current Complaint Chief Complaint: UCLowerExtremity Stated Complaint: PT FELL- NO APPARENT INJURY Hx Obtained From: Patient Onset/Duration: Sudden Onset, Lasting Hours - 3 Onset Of Pain: Immediate Severity Initially: Mild Pain Intensity: 0 Mechanism Of Injury: Fall From A Standing Position Aggravating Factor(s): Nothing Alleviating Factor(s): Nothing Associated Signs And Symptoms: Negative: Loss Of Consciousness, Ecchymosis, Swelling - Allergies/Home Medications Allergies/Adverse Reactions: Allergies Allergy/AdvReac Type Severity Reaction Status Date / Time Adhesive Tape Allergy Itching Verified 07/09/14 07:16 RASH BURNING codeine Allergy Unknown Verified 01/31/20 18:21 Reaction Details morphine Allergy Unknown Verified 01/31/20 18:21 Reaction Details Sulfa (Sulfonamide Allergy Rash Verified 01/31/20 18:21 Antibiotics) Home Medications: Home Medications Aspirin TAB* [Aspirin 325 MG TAB*] 81 mg PO DAILY 09/16/13 [History Confirmed ] Atenolol & Chlorthalidone [Atenolol/Chlorthalidone] 25 mg PO DAILY 09/16/13 [ History Confirmed 01/31/20] Rosuvastatin Calcium [Crestor] 10 mg PO DAILY 09/16/13 [History Confirmed ] Levothyroxine TAB* [Synthroid TAB*] 50 mcg PO DAILY 01/31/20 [History Confirmed 01/31/20] Magnesium Oxide [Magnesium] 400 mg PO BEDTIME 01/31/20 [History Confirmed ] QUEtiapine TAB* [Seroquel 25 MG TAB*] 12.5 mg PO DAILY 01/31/20 [History Confirmed 01/31/20] Sertraline* [Zoloft*] 25 mg PO BEDTIME 01/31/20 [History Confirmed 01/31/20] Verapamil TAB* [Calan TAB*] 120 mg PO DAILY 01/31/20 [History Confirmed 01/31/20 ] PMH/Surg Hx/FS Hx/Imm Hx Endocrine History: Dyslipidemia Cardiovascular History: Cardiac Disease, Hypertension - Surgical History Surgical History: Yes Surgery Procedure, Year, and Place: pacemaker. aortic valve replacement. stent. hysterectomy. cholecystectomy. cataract surgery - Family History Known Family History: Positive: Cardiac Disease - Social History Occupation: Retired Lives: Assisted Living Alcohol Use: None Substance Use Type: None Smoking Status (MU): Never Smoked Tobacco Review of Systems All Other Systems Reviewed And Are Negative: Yes Skin: Positive: Other - abrasion left knee Is Patient Immunocompromised?: No Physical Exam Triage Information Reviewed: Yes Appearance: Well-Appearing, No Pain Distress, Well-Nourished Vital Signs: Initial Vital Signs Temp 98.0 F 01/31/20 18:12 Pulse 65 01/31/20 18:12 Resp 17 01/31/20 18:12 BP 111/54 01/31/20 18:12 Pulse Ox 98 01/31/20 18:12 Vital Signs Reviewed: Yes Eyes: Positive: Conjunctiva Clear Neck exam: Normal Respiratory Exam: Normal Cardiovascular: Positive: RRR, Murmur:Sys:Grade _?_/ - 3/6 Musculoskeletal Exam: Normal Musculoskeletal: Positive: Other: - no left knee patellar tenderness Neurological Exam: Normal Psychological Exam: Normal Skin: Positive: Other - abrasion left knee Images Front/Back of Body, Lg (Ceiba): 1 - abrasion Minor Trauma Course/Dx - Differential Dx/Diagnosis Differential Diagnosis/HQI/PQRI: Abrasion(s), Contusion(s), Hematoma(s), Laceration(s) Provider Diagnosis: Abrasion, left knee, initial encounter Discharge ED - Sign-Out/Discharge Documenting (check all that apply): Patient Departure All imaging exams completed and their final reports reviewed: No Studies - Discharge Plan Condition: Stable Disposition: HOME Patient Education Materials: Abrasion (ED) Referrals: Poli Moreno DO [Primary Care Provider] - Additional Instructions: No need for xray. If weeping cover with telfa pad. - Billing Disposition and Condition Condition: STABLE Disposition: Home
== END 2020-01-31 18:47 | disposition home or self-care (01) ==
LOC: UCCORT 15:18
DX: S80.212A Abrasion, left knee, initial encounter (principal); E78.5 Hyperlipidemia, unspecified; I10 Essential (primary) hypertension; Z79.82 Long term (current) use of aspirin; Z79.899 Other long term (current) drug therapy; Z91.09 Other allergy status, other than to drugs and biological substances; Z88.5 Allergy status to narcotic agent; Z88.2 Allergy status to sulfonamides
CPT/HCPCS: 99211; G0463